=== PATIENT | male | born 1985 | race Two or more races ===

== ENCOUNTER 2018-04-12 00:23 | Inpatient (IN) | payer OTHER ==
[~2018-04-12] VITALS: Ht 167.6 cm; Wt 63.5 kg
[2018-04-12 04:20] VITALS: Ht 167.6 cm; Wt 63.5 kg
[2018-04-12 04:21] VITALS: BP 110/64; PULSE 54; RESP 18
[2018-04-12] MEDS ORDERED: SOD CHLORIDE 0.9% 1,000 ML IV SCH (04:38)
--- NOTE | 2018-04-12 04:42 | HP ---
Date/Time of Note Date/Time of Note DATE: 04/12/18 TIME: 04:42 Assessment/Plan VTE Prophylaxis SCD applied (from [facility]): Yes Pharmacological prophylaxis: NA/contraindicated Pharm contraindication: low risk/ambulating Assessment/Plan Hospital Course This is a 33 mL being admitted to the [facility] floor for: #1 left-sided nephrolithiasis with moderate hydronephrosis: Patient had a CT that her pelvis that showed a 3 mm left-sided UVJ stone with moderate hydronephrosis. Urinalysis was positive for white blood cells but was negative for nitrites and leukoesterase, patient did receive ceftriaxone in the transfer facility. At the current time we will repeat a urinalysis and CBC and BMP. We will hold off on further antibiotics at the current time unless he becomes febrile or UA is positive. Aggressive IV fluid hydration with normal saline, Flomax twice daily. Dilaudid for pain. Urine strainer. KUB in the a.m. Consider urology consultation if indicated. #2 DVT GI prophylaxis: SCDs, no GI prophylaxis indicated Further treatment strategy will be implemented for clinical course HPI/ROS Admit Date/Time Admit Date/Time Apr 12, 2018 at 04:10 Hx of Present Illness Chief complaint: Left flank pain times 1 day This is a 33-year-old male who presented to outside hospital with complaints of left flank pain and hematuria. Patient reports that yesterday he started experiencing left flank pain which was radiating down to his groin along with blood in the urine. He states that for the last couple days he had noted an abnormal urine color and then yesterday he noticed blood. CT scan of the abdomen pelvis was performed that showed a 3 mm left UVJ stone with moderate hydronephrosis. Urinalysis also showed positive white blood cells however there were no nitrites or leukoesterase. Patient had a bili white blood cell count of 12,000. Vitals at the transfer facility showed:Temperature emperature 97.9 pulse rate 47 respirations 18 systolic 169/97 pulse 96% on room air. Patient wa s suddenly transferred [facility] secondary to insurance purposes. Allergies: NKDA Medications: None ROS Const: As per HPI Eyes : No pain discharge or redness or change in visual acuity ENT: No pain, sore throat, congestion, congestion, dysphagia or discharge Respiratory: No shortness of breath, cough, sputum, wheezing, or pleuritic pain Cardiovascular: No chest pain, palpitation, PND, or edema GI : no change in appetite, abdominal pain, nausea, vomiting, diarrhea, constipation, or change in the color his stool Genitourinary: As per HPI Musculoskeletal: No joint pain, back pain, neck pain, restricted range of motion in neck or joints Skin: No rash, bruising or hives Neuro: No headache, dizziness, syncope, seizure, focal weakness Endocrine: No polyuria, polydipsia, temperature intolerance Psych: No hallucination, depression, anxiety or suicidal ideation PMH/Family/Social Past Medical History Medical History: no pertinent history Coded Allergies: No Known Allergy (Unverified , 04/12/18) Past Surgical History Past Surgical Hx: no surgical history Family History Significant Family History: no pertinent family hx Social History Alcohol Use: none Smoking Status: Current every day smoker Drug Use: marijuana Exam/Review of Systems Vital Signs Vitals Vital Signs Date Temp Pulse Resp B/P (MAP) Pulse Ox O2 O2 Flow FiO2 Time Delivery Rate 04/12/18 97.4 54 18 110/64 95 04:21 (79) Exam Exam General: Patient is a pleasant male currently lying in bed in no acute distress HEENT: Atraumatic, normocephalic. The pupils are equal, round and reactive. Extraocular motor are intact Neck: Supple with full range of motion. No rigidity or meningismus Chest: Nontender Lungs: Clear to auscultation bilaterally no crackles rales or wheezing Heart: Normal S1-S2, Regular rhythm and rate. No murmur, S3, or S4 Abdomen: Soft, tenderness palpation over the left lower abdominal quadrant, nondistended, normal bowel sounds, no CVA tenderness bilaterally. Extremities: Normal to inspection, no edema no cyanosis Neurologic: Normal mental status, speech normal, cranial nerves II through XII are intact, motor and sensory are intact, no focal weakness LIA RASCON Apr 12, 2018 04:42
[2018-04-12] MEDS ORDERED: ACETAMINOPHEN 325 MG TAB PO PRN (05:00)
[2018-04-12] MEDS ORDERED: ONDANSETRON 4 MG INJ IV PRN (05:00)
[2018-04-12] MEDS ORDERED: DOCUSATE SODIUM 100 MG CAP PO PRN (05:00)
[2018-04-12] MEDS ORDERED: HYDROmorphONE 0.5 MG/0.5 ML SYG IV PRN (05:00)
[2018-04-12] MEDS ORDERED: NACL 0.9% 3 ML SYG IV SCH (05:00)
[2018-04-12] MEDS ORDERED: BISACODYL (EC) 5 MG TAB PO PRN (05:00)
[2018-04-12] MEDS ORDERED: TAMSULOSIN (SR) 0.4 MG CAP PO SCH (05:01)
--- NOTE | 2018-04-12 06:00 | NUR ---
EOSS Patient alert, oriented, admitted from [facility] for urethral stone. Patient stated that he has no pain right now. Skin intaxct
--- NOTE | 2018-04-12 06:01 | NUR ---
EOSS Continuation; Skin intact verified with another RN Lucrecia, refuse to take pictures. Urine strain, collected sample for UA send to lab.[place] patient to unit and plan of care All needs attended, call light is within reach.
[2018-04-12 08:20] VITALS: BP 114/57; PULSE 54; RESP 18
--- NOTE | 2018-04-12 10:18 | PDOCDIS ---
Discharge Instructions DIAGNOSIS Discharge Diagnosis Right 3 mm nephrolithiasis CONDITION [id number] Patient Condition: [id number] Good HOME CARE INSTRUCTIONS: [id number] Diet Instructions: Aheoc2a Regular ACTIVITY: [id number] Activity Restrictions: [id number] No Restrictions FOLLOW UP/APPOINTMENTS Follow-up Plan 1. Finish a 7 day course of tamsulosin. 2. Take [id number] ibuprofen or tylenol as needed for pain. 3. Drink plenty of water. 4. For worsening pain not responding to above medications, return to the emergency room. 5. See your primary care doctor in 1-2 weeks. SHAR ZHENG MD Apr 12, 2018 10:18
--- NOTE | 2018-04-12 12:35 | NUR ---
Discharge: Pt discharged in wheelchair with volunteer to family member in car. Pt discharged with all personal belongings. Pt received discharge instructions, patient health summary, instructions for follow-up and [facility]. Pt verbalized understanding. Pt discharged with prescriptions. IV removed, no issues. Pt stable at discharge, A&Ox4.
--- NOTE | 2018-04-12 17:37 | DS ---
Date/Time of Note Date/Time of Note DATE: 04/12/18 TIME: 17:36 Discharge Summary Admission/Discharge Info Admit Date/Time Apr 12, 2018 at 04:10 Discharge Date/Time Apr 12, 2018 at 11:50 Discharge Diagnosis Right 3 mm nephrolithiasis Patient Condition: Good Consults None Procedures None Hx of Present Illness Chief complaint: Left flank pain times 1 day This is a 33-year-old man who presented to outside hospital with complaints of left flank pain and hematuria. Patient reports that yesterday he started experiencing left flank pain which was radiating down to his groin along with blood in the urine. He states that for the last couple days he had noted an abnormal urine color and then yesterday he noticed blood. CT scan of the abdomen pelvis was performed that showed a 3 mm left UVJ stone with moderate hydronephrosis. Urinalysis also showed positive white blood cells however there were no nitrites or leukoesterase. Patient had a bili white blood cell count of 12,000. Vitals at the transfer facility showed:Temperature emperature 97.9 pulse rate 47 respirations 18 systolic 169/97 pulse 96% on room air. Patient was transferred [facility] for insurance purposes. Allergies: NKDA Medications: None Hospital Course Upon arrival, WBC was normal. He had no pain and hadn't received any analgesics. He had no CVA tenderness. He did not remember passing any stone. 3 mm stones typically pass spontaneously. He will be discharged with a 7 day course of tamsulosin and instructed to see his primary care doctor. Home Meds No Active Prescriptions or Reported Meds Follow-up Plan 1. Finish a 7 day course of tamsulosin. 2. Take epww-lwc-vdsmaiu ibuprofen or tylenol as needed for pain. 3. Drink plenty of water. 4. For worsening pain not responding to above medications, return to the emergency room. 5. See your primary care doctor in 1-2 weeks. Primary Care Provider Care Physician No Primary Time spent on discharge: > 30 minutes Pending Labs Laboratory Tests Test 04/12/18 04:51 04/12/18 04:52 04/12/18 06:30 White Blood Count 7.7 10^3/ul (4.8-10.8) Red Blood Count 4.34 10^6/ul (4.70-6.10) Hemoglobin 13.4 g/dl (14.0-18.0) Hematocrit 40.1 % (42.0-52.0) Mean Corpuscular 92.4 Volume fl (82.0-101.0) Mean Corpuscular 30.9 pg (29.0-33.0) Hemoglobin Mean Corpuscular 33.4 Hemoglobin Concent g/dl (32.0-37.0) Red Cell 12.0 % (11.5-14.5) Distribution Width Platelet Count 188 10^3/UL (140-415) Mean Platelet 10.6 fl (7.4-10.4) Volume Immature 0.500 Granulocytes % % (0.001-0.429) Neutrophils % 49.1 % (39.0-77.0) Lymphocytes % 39.6 % (15.0-51.0) Monocytes % 8.0 % (0.0-11.0) Eosinophils % 2.0 % (0.0-7.0) Basophils % 0.8 % (0.0-2.0) Nucleated Red Blood 0.0 Cells % /100WBC (0.0-0.0) Immature 0.040 Granulocytes # 10^3/ul (0.0-0.031) Neutrophils # 3.8 10^3/ul (1.6-7.5) Lymphocytes # 3.0 10^3/ul (0.8-2.9) Monocytes # 0.6 10^3/ul (0.3-0.9) Eosinophils # 0.2 10^3/ul (0.0-0.5) Basophils # 0.1 10^3/ul (0.0-0.1) Nucleated Red Blood 0.0 Cells # 10^3/ul (0.0-0.0) Hemoglobin A1c 5.2 % (0-5.9) Sodium Level 144 mmol/L (135-144) Potassium Level 3.9 mmol/L (3.5-5.1) Chloride Level 105 mmol/L (97-110) Carbon Dioxide 27 mmol/L (21-31) Level Anion Gap 12 (5-13) Blood Urea 12 mg/dl (7-20) Nitrogen Creatinine 0.79 mg/dl (0.61-1.24) Est Glomerular > 60 mL/min (>60) Filtrat Rate mL/min Glucose Level 91 mg/dl (70-220) Calcium Level 9.3 mg/dl (8.4-10.2) Magnesium Level 1.8 mg/dl (1.7-2.5) Total Bilirubin 0.4 mg/dl (0.2-1.3) Direct Bilirubin 0.00 mg/dl (0.00-0.20) Indirect Bilirubin 0.4 mg/dl (0-1.1) Aspartate Amino 17 IU/L (15-46) Transf (AST/SGOT) Alanine 22 IU/L (13-69) Aminotransferase (A LT/SGPT) Alkaline 50 IU/L (42-121) Phosphatase Total Protein 6.3 g/dl (6.1-8.1) Albumin 3.8 g/dl (3.3-4.9) Globulin 2.50 g/dl (1.3-3.2) Albumin/Globulin 1.52 Ratio Triglycerides 100 mg/dl (0-149) Level Cholesterol Level 107 mg/dl (100-200) LDL Cholesterol, 52 mg/dl Calculated HDL Cholesterol 35 mg/dl (28-63) Cholesterol/HDL 3.0 RATIO Ratio Thyroid Stimulating 0.385 Hormone (TSH) MIU/L (0.465-4.680 ) Urine Color STRAW (YELLOW) Urine Clarity CLEAR (CLEAR) Urine pH 6.0 (5.0-9.0) Urine Specific 1.005 (1.003-1.030 [place] ) Urine Ketones NEGATIVE mg/dL (NEGATIVE) Urine Nitrite NEGATIVE mg/dL (NEGATIVE) Urine Bilirubin NEGATIVE mg/dL (NEGATIVE) Urine Urobilinogen NEGATIVE mg/dL (NEGATIVE) Urine Leukocyte NEGATIVE Marco/ul Esterase Urine Microscopic 6 /HPF (0-5) RBC Urine Microscopic 0 /HPF (0-5) WBC Urine Hemoglobin 2+ mg/dL (NEGATIVE) Urine Glucose NEGATIVE mg/dL (NEGATIVE) Urine Total NEGATIVE Protein mg/dl (NEGATIVE) SHAR ZHENG MD Apr 12, 2018 17:37
== END 2018-04-12 11:50 | disposition home or self-care (01) | DRG 694 ==
LOC: MS1 04:10
PROVIDERS: ADMIT Family Medicine; ATTEND Internal Medicine
DX: N13.2 Hydronephrosis with renal and ureteral calculous obstruction (principal)
CPT/HCPCS: 74018; 80053; 80061; 81001; 83036; 83735; 84443; 85025; J7030